=== PATIENT | male | born 1950 | race Caucasian/White ===

== ENCOUNTER 2017-10-01 08:49 | Emergency (ER) | payer MEDICARE, OTHER ==
[2017-10-01] MEDS ORDERED: Famotidine TAB* 20 MG PO ONE (09:04)
[2017-10-01] MEDS ORDERED: Al Hydrox/Mg Hydrox/Simet LIQ* 30 ML UDC PO ONE (09:04)
[2017-10-01] MEDS ORDERED: Lidocaine 2% VISCOUS* 15 ML UDC PO ONE (09:04)
--- NOTE | 2017-10-01 09:36 | RAD ---
HISTORY: Chest pain COMPARISONS: May 28, 2016 VIEWS: 4: Frontal dual-energy and lateral views of the chest. FINDINGS: CARDIOMEDIASTINAL SILHOUETTE: The cardiomediastinal silhouette is normal. JARVIS: The jarvis are normal. PLEURA: The costophrenic angles are sharp. No pleural abnormalities are noted. LUNG PARENCHYMA: The lungs are clear. ABDOMEN: The upper abdomen is clear. There is no subphrenic gas. BONES AND SOFT TISSUES: Degenerative changes are noted along the spine. OTHER: None. IMPRESSION: NO ACTIVE CARDIOPULMONARY DISEASE.
[2017-10-01 09:38] LABS: Hematocrit 44 % (42-52); Hemoglobin 14.9 g/dl (14.0-18.0); Mean Corpuscular HGB Conc 34 g/dl (31-36); Mean Corpuscular Hemoglobin 34 pg (27-31); Mean Corpuscular Volume 100 fL (80-94); Mean Platelet Volume 8 um3 (7.4-10.4); Red Blood Count 4.42 10^6/ul (4.0-5.4); Red Cell Distribution Width 13 % (10.5-15)
[2017-10-01 09:55] LABS: Albumin 4.1 g/dL (3.2-5.2); BUN/Creatinine Ratio 8.3 (8-20); Calcium 9.4 mg/dL (8.6-10.3); EGFR African American 86.8 (>60); EGFR Non-African American 67.5 (>60); Globulin 2.5 g/dL (2-4); Potassium 3.8 mmol/L (3.5-5.0); Total Protein 6.6 g/dL (6.4-8.9)
[2017-10-01 10:16] LABS: T4 5.65 mcg/mL (6.09-12.23)
[2017-10-01 10:19] LABS: TSH (Thyroid Stimulating Horm) 4.48 mcIU/mL (0.34-5.60)
[2017-10-01 13:14] VITALS: BP 135/77
--- NOTE | 2017-10-02 08:24 | ED ---
Arie Rain Angela, scribed for Pk Zafar MD on 10/01/17 at 0902 . HPI Chest Pain - HPI Summary HPI Summary: This pt is a 66 y/o male presenting to [facility] c/o chest pain radiating to his left shoulder/arm since yesterday. Pt reports his symptoms began yesterday afternoon. Today, he states his chest pain has moved lower. He currently rates his pain 2/10 in severity. Pt additionally c/o SOB and indigestion. He denies nausea, vomiting. Pt denies any PMHx of CA, diabetes, HTN. He currently takes Flomax and occasionally low dose aspirin. - History of Current Complaint Chief Complaint: EDChestPainROMI Time Seen by Provider: 10/01/17 08:57 Hx Obtained From: Patient Onset/Duration: Started Days Ago - 1, Still Present Timing: Constant, Lasting Days - 1 Current Severity: Mild Pain Intensity: 2 Pain Scale Used: 0-10 Numeric Chest Pain Location: Lower Sternal Chest Pain Radiates: Yes Chest Pain Radiates To:: Arm - left Associated Signs and Symptoms: Positive: Chest Pain, Shortness of Breath, Other : - indigestion. Negative: Nausea, Vomiting - Allergy/Home Medications Allergies/Adverse Reactions: Allergies Allergy/AdvReac Type Severity Reaction Status Date / Time Amoxicillin Allergy Mild Rash Verified 09/27/15 07:18 Clarithromycin Allergy Mild Rash Verified 09/27/15 07:18 Home Medications: Home Medications Aspirin EC Low Dose* [Ecotrin EC Low Dose 81 MG*] 81 mg PO DAILY 10/01/17 [ History Confirmed 10/01/17] PMH/Surg Hx/FS Hx/Imm Hx Endocrine/Hematology History: Denies: Hx Diabetes Cardiovascular History: Denies: Hx Hypertension - Surgical History Surgery Procedure, Year, and Place: [facility] - Immunization History Date of Tetanus Vaccine: Unk Date of Influenza Vaccine: None Infectious Disease History: No Infectious Disease History: Denies: Traveled Outside the [place] in Last 30 Days - Family History Known Family History: Negative: Cardiac Disease, Hypertension, Diabetes - Social History Alcohol Use: None Substance Use Type: Reports: None Smoking Status (MU): Former Smoker Review of Systems Negative: Fever, Chills Positive: Chest Pain Positive: Shortness Of Breath Gastrointestinal: Other - indigestion Negative: Vomiting, Nausea Genitourinary: Negative Musculoskeletal: Negative Skin: Negative Neurological: Negative All Other Systems Reviewed And Are Negative: Yes Physical Exam - Summary Physical Exam Summary: VITAL SIGNS: Reviewed. GENERAL: Patient is a well-developed and nourished male who is lying comfortable in the stretcher. Patient is not in any acute respiratory distress. HEAD AND FACE: No signs of trauma. No ecchymosis, hematomas or skull depressions. No sinus tenderness. EYES: PERRLA, EOMI x 2, No injected conjunctiva, no nystagmus. EARS: Hearing grossly intact. Ear canals and tympanic membranes are within normal limits. MOUTH: Oropharynx within normal limits. NECK: Supple, trachea is midline, no adenopathy, no JVD, no carotid bruit, no c- spine tenderness, neck with full ROM. CHEST: Symmetric, no tenderness at palpation LUNGS: Clear to auscultation bilaterally. No wheezing or crackles. CVS: Regular rate and rhythm, S1 and S2 present, no murmurs or gallops appreciated. ABDOMEN: Soft, non-tender. No signs of distention. No rebound no guarding, and no masses palpated. Bowel sounds are normal. EXTREMITIES: FROM in all major joints, no edema, no cyanosis or clubbing. NEURO: Alert and oriented x 3. No acute neurological deficits. Speech is normal and follows commands. SKIN: Dry and warm Triage Information Reviewed: Yes Vital Signs On Initial Exam: Initial Vitals Temp Pulse Resp BP Pulse Ox 97.0 F 65 16 158/83 98 10/01/17 08:52 10/01/17 08:52 10/01/17 08:52 10/01/17 08:52 10/01/17 08:52 Vital Signs Reviewed: Yes Diagnostics - Vital Signs Vital Signs Temp Pulse Resp BP Pulse Ox 10/01/17 08:52 97.0 F 65 16 158/83 98 - Laboratory Lab Results: Lab Results 10/01/17 10/01/17 10/01/17 Range/Units 09:15 09:15 09:15 WBC 5.0 (3.5-10.8) 10^3/ul RBC 4.42 (4.0-5.4) 10^6/ul Hgb 14.9 (14.0-18.0) g/dl Hct 44 (42-52) % MCV 100 H (80-94) fL MCH 34 H (27-31) pg MCHC 34 (31-36) g/dl RDW 13 (10.5-15) % Plt Count 202 (150-450) 10^3/ul MPV 8 (7.4-10.4) um3 Neut % (Auto) 55.6 (38-83) % Lymph % (Auto) 20.4 L (25-47) % [place] % (Auto) 20.8 H (1-9) % Eos % (Auto) 2.7 (0-6) % Baso % (Auto) 0.5 (0-2) % Absolute Neuts (auto) 2.8 (1.5-7.7) 10^3/ul Absolute Lymphs (auto) 1.0 (1.0-4.8) 10^3/ul Absolute Monos (auto) 1.0 H (0-0.8) 10^3/ul Absolute Eos (auto) 0.1 (0-0.6) 10^3/ul Absolute Basos (auto) 0 (0-0.2) 10^3/ul Absolute Nucleated RBC 0 10^3/ul Nucleated RBC % 0.1 Sodium 138 (133-145) mmol/L Potassium 3.8 (3.5-5.0) mmol/L Chloride 105 (101-111) mmol/L Carbon Dioxide 27 (22-32) mmol/L Anion Gap 6 (2-11) mmol/L BUN 9 (6-24) mg/dL Creatinine 1.09 (0.67-1.17) mg/dL Est GFR ( Amer) 86.8 (>60) Est GFR (Non-Af Amer) 67.5 (>60) BUN/Creatinine Ratio 8.3 (8-20) Glucose 118 H (70-100) mg/dL Calcium 9.4 (8.6-10.3) mg/dL Total Bilirubin 1.00 (0.2-1.0) mg/dL AST 26 (13-39) U/L ALT 23 (7-52) U/L Alkaline Phosphatase 64 (34-104) U/L Total Creatine Kinase 197 (10-223) U/L CK-MB (CK-2) 3.1 (0.6-6.3) ng/mL Troponin I 0.00 (<0.04) ng/mL B-Natriuretic Peptide 41 ( - 100) pg/mL Total Protein 6.6 (6.4-8.9) g/dL Albumin 4.1 (3.2-5.2) g/dL Globulin 2.5 (2-4) g/dL Albumin/Globulin Ratio 1.6 (1-3) TSH 4.48 (0.34-5.60) mcIU/mL Thyroxine (T4) 5.65 L (6.09-12.23) mcg/mL 10/01/17 Range/Units 12:05 WBC (3.5-10.8) 10^3/ul RBC (4.0-5.4) 10^6/ul Hgb (14.0-18.0) g/dl Hct (42-52) % MCV (80-94) fL MCH (27-31) pg MCHC (31-36) g/dl RDW (10.5-15) % Plt Count (150-450) 10^3/ul MPV (7.4-10.4) um3 Neut % (Auto) (38-83) % Lymph % (Auto) (25-47) % [place] % (Auto) (1-9) % Eos % (Auto) (0-6) % Baso % (Auto) (0-2) % Absolute Neuts (auto) (1.5-7.7) 10^3/ul Absolute Lymphs (auto) (1.0-4.8) 10^3/ul Absolute Monos (auto) (0-0.8) 10^3/ul Absolute Eos (auto) (0-0.6) 10^3/ul Absolute Basos (auto) (0-0.2) 10^3/ul Absolute Nucleated RBC 10^3/ul Nucleated RBC % Sodium (133-145) mmol/L Potassium (3.5-5.0) mmol/L Chloride (101-111) mmol/L Carbon Dioxide (22-32) mmol/L Anion Gap (2-11) mmol/L BUN (6-24) mg/dL Creatinine (0.67-1.17) mg/dL Est GFR ( Amer) (>60) Est GFR (Non-Af Amer) (>60) BUN/Creatinine Ratio (8-20) Glucose (70-100) mg/dL Calcium (8.6-10.3) mg/dL Total Bilirubin (0.2-1.0) mg/dL AST (13-39) U/L ALT (7-52) U/L Alkaline Phosphatase (34-104) U/L Total Creatine Kinase (10-223) U/L CK-MB (CK-2) (0.6-6.3) ng/mL Troponin I 0.00 (<0.04) ng/mL B-Natriuretic Peptide ( - 100) pg/mL Total Protein (6.4-8.9) g/dL Albumin (3.2-5.2) g/dL Globulin (2-4) g/dL Albumin/Globulin Ratio (1-3) TSH (0.34-5.60) mcIU/mL Thyroxine (T4) (6.09-12.23) mcg/mL Result Diagrams: 10/01/17 09:15 10/01/17 09:15 Lab Statement: Any lab studies that have been ordered have been reviewed, and results considered in the medical decision making process. - Radiology Chest XR Xray Interpretation: No Acute Changes - IMPRESSION: No active cardiopulmonary disease. ED physician has reviewed this radiology report and agrees. Radiology Interpretation Completed By: Radiologist - EKG 0906 Cardiac Rate: Bradycardia EKG Rhythm: Sinus Rhythm - at 57 bpm EKG Interpretation: T-wave inversion in leads III. Re-Evaluation - Re-Evaluation First Eval Re-Evaluation Time: 13:05 Comment: I reviewed the XR and lab results with the pt. Chest Pain Course/Dx - Course Assessment/Plan: This pt is a 66 y/o male presenting to [facility] c/o chest pain radiating to his left shoulder/arm since yesterday. Pt reports his symptoms began yesterday afternoon. Today, he states his chest pain has moved lower. He currently rates his pain 2/10 in severity. Pt additionally c/o SOB and indigestion. He denies nausea, vomiting. Pt denies any PMHx of CA, diabetes, HTN. He currently takes Flomax and occasionally low dose aspirin. Test results without any significant abnormalities except for glucose of 118. Troponin was 0.00 and 4 hours later, troponin 2 is also 0.00. Chest XR shows no active cardiopulmonary disease. The pt was given a GI cocktail and Pepcid, and all symptoms resolved. The pt was observed for more than 4 hours and his symptoms did not return. Therefore, he will be discharged home with follow up from his PCP. Pt is hemodynamically stable, alert and oriented x3. - Chest Pain Differential Diagnosis/HQI/PQRI: Acute CA, ACS, Angina, CHF, Chest Wall, GI Disease, Lower Respiratory Infection - Diagnoses Provider Diagnoses: Chest pain Discharge - Discharge Plan Condition: Stable Disposition: HOME Patient Education Materials: Chest Pain (ED) Referrals: Sunita Nicolas ADVERTISING COLUMNIST [Primary Care Provider] - Additional Instructions: Please follow up with your primary care provider. RETURN TO THE ED FOR ANY WORSENING OR NEW SYMPTOMS. The documentation as recorded by the Arie bain Angela accurately reflects the service I personally performed and the decisions made by Andrade lopez Walter, MD.
== END 2017-10-01 13:14 | disposition home or self-care (01) ==
LOC: ED 08:49
DX: R07.9 Chest pain, unspecified (principal); R06.02 Shortness of breath; Z87.891 Personal history of nicotine dependence
CPT/HCPCS: 36415; 71020; 80053; 82550; 82553; 83880; 84436; 84443; 84484; 85025; 93005; 99282; A9270-GY

== ENCOUNTER 2018-03-24 14:58 | Emergency (ER) | payer MEDICARE ==
[2018-03-24] MEDS ORDERED: Acetaminophen TAB* 325 MG PO ONE (15:51)
[2018-03-24 16:10] LABS: Hematocrit 41 % (42-52); Hemoglobin 14.2 g/dl (14.0-18.0); Mean Corpuscular HGB Conc 35 g/dl (31-36); Mean Corpuscular Hemoglobin 35 pg (27-31); Mean Corpuscular Volume 100 fL (80-94); Mean Platelet Volume 7.5 um3 (7.4-10.4); Platelet Count 178 10^3/ul (150-450); Red Blood Count 4.12 10^6/ul (4.0-5.4); Red Cell Distribution Width 13 % (10.5-15); White Blood Count 11.3 10^3/ul (3.5-10.8)
[2018-03-24 16:22] LABS: INR 1.16 (0.77-1.02)
[2018-03-24 16:26] LABS: Urine Appearance Clear; Urine Blood 1+ (Negative); Urine Color Yellow; Urine Ketones 1+ (Negative); Urine Protein 1+(30 mg/dL) (Negative); Urine Specific Gravity 1.015 (1.010-1.030); Urine Urobilinogen Positive (Negative)
--- NOTE | 2018-03-24 16:31 | RAD ---
HISTORY: Fever COMPARISONS: October 01, 2017 VIEWS: 4: Frontal dual-energy and lateral views of the chest. FINDINGS: CARDIOMEDIASTINAL SILHOUETTE: The cardiomediastinal silhouette is normal. JARVIS: The jarvis are normal. PLEURA: The costophrenic angles are sharp. No pleural abnormalities are noted. LUNG PARENCHYMA: There is a diffuse pattern of alveolar and reticulonodular opacification of the right lung field. ABDOMEN: The upper abdomen is clear. There is no subphrenic gas. BONES AND SOFT TISSUES: No bone or soft tissue abnormalities are noted. OTHER: None. IMPRESSION: MIXED INTERSTITIAL AND AIRSPACE DISEASE OF THE RIGHT LUNG. RECOMMEND FOLLOW-UP UNTIL RESOLUTION TO EXCLUDE UNDERLYING PULMONARY PARENCHYMAL PATHOLOGY. IF THE CLINICAL PRESENTATION IS NOT CONSISTENT WITH INFECTION, CONSIDER FURTHER EVALUATION WITH CONTRAST-ENHANCED CT OF THE CHEST .
[2018-03-24 16:32] LABS: EGFR Non-African American 69.5 (>60)
[2018-03-24 16:34] LABS: ABS Basophils 0 10^3/ul (0-0.2); ABS Eosinophils 0 10^3/ul (0-0.6); ABS Lymphocytes 0.9 10^3/ul (1.0-4.8); ABS Monocytes 2.6 10^3/ul (0-0.8); ABS Neutrophils 7.8 10^3/ul (1.5-7.7); ABS Nucleated RBC 0 10^3/ul; Eosinophil % 0.1 % (0-6); Lymphocyte % 7.8 % (25-47); Nucleated Red Blood Cells % 0.1
[2018-03-24] MEDS ORDERED: Levofloxacin TAB* 250 MG PO ONE (17:21)
[2018-03-24 17:34] VITALS: BP 128/73
--- NOTE | 2018-03-24 17:54 | ED ---
Rahat Rain Tiffany, scribed for Lionel Orozco on 03/24/18 at 1551 . Influenza-Like Illness - HPI Summary HPI Summary: 67 y/o M presents to [facility] complains of vomiting since two nights ago, worse since today. Symptoms aggravated and alleviated by nothing. Reports cough with greenish-brown phlegm, chest pain with cough, chills, weakness. Denies abdominal pain, bilateral leg edema, fever. No hx of diabetes, HTN, cardiac disease. - History of Current Complaint Chief Complaint: EDFluSymptoms Time Seen by Provider: 03/24/18 15:31 Hx Obtained From: Patient Onset/Duration: Lasting Days - two nights ago, Still Present, Worse Since - today - Allergy/Home Medications Allergies/Adverse Reactions: Allergies Allergy/AdvReac Type Severity Reaction Status Date / Time amoxicillin Allergy Hives Verified 03/24/18 15:03 clarithromycin Allergy Hives Verified 03/24/18 15:03 PMH/Surg Hx/FS Hx/Imm Hx Previously Healthy: No Endocrine/Hematology History: Denies: Hx Diabetes Cardiovascular History: Denies: Hx Congenital Heart Disease, Hx Congestive Heart Failure, Hx Coronary Artery Disease, Hx Hypertension GI History: Reports: Hx Gastroesophageal Reflux Disease Sensory History: Denies: Hx Deafness EENT History: Denies: Hx Deafness Psychiatric History: Denies: Hx Panic Disorder - Surgical History Surgery Procedure, Year, and Place: [facility] - Immunization History Date of Tetanus Vaccine: Unk Date of Influenza Vaccine: None Infectious Disease History: No Infectious Disease History: Denies: Traveled Outside the [place] in Last 30 Days - Family History Known Family History: Negative: Cardiac Disease, Hypertension, Diabetes - Social History Alcohol Use: Daily Alcohol Amount: "a couple" each day Hx Substance Use: No Substance Use Type: Reports: None Hx Tobacco Use: Yes Smoking Status (MU): Former Smoker Review of Systems Negative: Fever Positive: Cough - with greenish-brown phelgm and chest pain Positive: Vomiting. Negative: Abdominal Pain Negative: Edema All Other Systems Reviewed And Are Negative: Yes Physical Exam - Summary Physical Exam Summary: Appearance: Well appearing, no pain distress Skin: warm, dry, reflects adequate perfusion Head/face: normal Eyes: EOMI, BASILIO ENT: normal Neck: supple, non-tender Respiratory: CTA, breath sounds present Cardiovascular: RRR, pulses symmetrical Abdomen: non-tender, soft Bowel: present Musculoskeletal: normal, strength/ROM intact Neuro: normal, sensory motor intact, A&Ox3 Triage Information Reviewed: Yes Vital Signs On Initial Exam: Initial Vitals Temp Pulse Resp BP Pulse Ox 98.4 F 84 18 142/90 93 03/24/18 15:00 03/24/18 15:00 03/24/18 15:00 03/24/18 15:00 03/24/18 15:00 Vital Signs Reviewed: Yes Diagnostics - Vital Signs Vital Signs Temp Pulse Resp BP Pulse Ox 03/24/18 15:00 98.4 F 84 18 142/90 93 - Laboratory Lab Results: Lab Results 03/24/18 03/24/18 03/24/18 Range/Units 15:58 15:58 15:58 WBC 11.3 H (3.5-10.8) 10^3/ul RBC 4.12 (4.0-5.4) 10^6/ul Hgb 14.2 (14.0-18.0) g/dl Hct 41 L (42-52) % MCV 100 H (80-94) fL MCH 35 H (27-31) pg MCHC 35 (31-36) g/dl RDW 13 (10.5-15) % Plt Count 178 (150-450) 10^3/ul MPV 7.5 (7.4-10.4) um3 Neut % (Auto) 69.0 (38-83) % Lymph % (Auto) 7.8 L (25-47) % [place] % (Auto) 22.8 H (0-7) % Eos % (Auto) 0.1 (0-6) % Baso % (Auto) 0.3 (0-2) % Absolute Neuts (auto) 7.8 H (1.5-7.7) 10^3/ul Absolute Lymphs (auto) 0.9 L (1.0-4.8) 10^3/ul Absolute Monos (auto) 2.6 H (0-0.8) 10^3/ul Absolute Eos (auto) 0 (0-0.6) 10^3/ul Absolute Basos (auto) 0 (0-0.2) 10^3/ul Absolute Nucleated RBC 0 10^3/ul Nucleated RBC % 0.1 INR (Anticoag Therapy) 1.16 H (0.77-1.02) APTT 28.0 (26.0-36.3) seconds Sodium 138 L (139-145) mmol/L Potassium 3.8 (3.5-5.0) mmol/L Chloride 104 (101-111) mmol/L Carbon Dioxide 27 (22-32) mmol/L Anion Gap 7 (2-11) mmol/L BUN 12 (6-24) mg/dL Creatinine 1.06 (0.67-1.17) mg/dL Est GFR ( Amer) 89.4 (>60) Est GFR (Non-Af Amer) 69.5 (>60) BUN/Creatinine Ratio 11.3 (8-20) Glucose 115 H (70-100) mg/dL Lactic Acid (0.5-2.0) mmol/L Calcium 8.7 (8.6-10.3) mg/dL Total Bilirubin 1.40 H (0.2-1.0) mg/dL AST 17 (13-39) U/L ALT 14 (7-52) U/L Alkaline Phosphatase 48 (34-104) U/L Troponin I 0.03 (<0.04) ng/mL B-Natriuretic Peptide ( - 100) pg/mL Total Protein 6.6 (6.4-8.9) g/dL Albumin 3.7 (3.2-5.2) g/dL Globulin 2.9 (2-4) g/dL Albumin/Globulin Ratio 1.3 (1-3) Urine Color Urine Appearance Urine pH (5-9) Ur Specific [place] (1.010-1.030) Urine Protein (Negative) Urine Ketones (Negative) Urine Blood (Negative) Urine Nitrate (Negative) Urine Bilirubin (Negative) Urine Urobilinogen (Negative) Ur Leukocyte Esterase (Negative) Urine WBC (Auto) (Absent) Urine RBC (Auto) (Absent) Ur Squamous Epith Cells (Absent) Urine Bacteria (Absent) Urine Glucose (Negative) 03/24/18 03/24/18 03/24/18 Range/Units 15:58 15:58 16:04 WBC (3.5-10.8) 10^3/ul RBC (4.0-5.4) 10^6/ul Hgb (14.0-18.0) g/dl Hct (42-52) % MCV (80-94) fL MCH (27-31) pg MCHC (31-36) g/dl RDW (10.5-15) % Plt Count (150-450) 10^3/ul MPV (7.4-10.4) um3 Neut % (Auto) (38-83) % Lymph % (Auto) (25-47) % [place] % (Auto) (0-7) % Eos % (Auto) (0-6) % Baso % (Auto) (0-2) % Absolute Neuts (auto) (1.5-7.7) 10^3/ul Absolute Lymphs (auto) (1.0-4.8) 10^3/ul Absolute Monos (auto) (0-0.8) 10^3/ul Absolute Eos (auto) (0-0.6) 10^3/ul Absolute Basos (auto) (0-0.2) 10^3/ul Absolute Nucleated RBC 10^3/ul Nucleated RBC % INR (Anticoag Therapy) (0.77-1.02) APTT (26.0-36.3) seconds Sodium (139-145) mmol/L Potassium (3.5-5.0) mmol/L Chloride (101-111) mmol/L Carbon Dioxide (22-32) mmol/L Anion Gap (2-11) mmol/L BUN (6-24) mg/dL Creatinine (0.67-1.17) mg/dL Est GFR ( Amer) (>60) Est GFR (Non-Af Amer) (>60) BUN/Creatinine Ratio (8-20) Glucose (70-100) mg/dL Lactic Acid 0.9 (0.5-2.0) mmol/L Calcium (8.6-10.3) mg/dL Total Bilirubin (0.2-1.0) mg/dL AST (13-39) U/L ALT (7-52) U/L Alkaline Phosphatase (34-104) U/L Troponin I (<0.04) ng/mL B-Natriuretic Peptide 166 H ( - 100) pg/mL Total Protein (6.4-8.9) g/dL Albumin (3.2-5.2) g/dL Globulin (2-4) g/dL Albumin/Globulin Ratio (1-3) Urine Color Yellow Urine Appearance Clear Urine pH 6.0 (5-9) Ur Specific [place] 1.015 (1.010-1.030) Urine Protein 1+(30 mg/dl) A (Negative) Urine Ketones 1+ A (Negative) Urine Blood 1+ A (Negative) Urine Nitrate Negative (Negative) Urine Bilirubin Negative (Negative) Urine Urobilinogen Positive A (Negative) Ur Leukocyte Esterase Negative (Negative) Urine WBC (Auto) Trace(0-5/hpf) (Absent) Urine RBC (Auto) Trace(0-2/hpf) (Absent) Ur Squamous Epith Cells Present A (Absent) Urine Bacteria Absent (Absent) Urine Glucose Negative (Negative) Result Diagrams: 03/24/18 15:58 03/24/18 15:58 Lab Statement: Any lab studies that have been ordered have been reviewed, and results considered in the medical decision making process. - Radiology CXR Radiology Interpretation Completed By: Radiologist - MIXED INTERSTITIAL AND AIRSPACE DISEASE OF THE RIGHT LUNG. RECOMMEND FOLLOW-UP UNTIL RESOLUTION TO EXCLUDE UNDERLYING PULMONARY PARENCHYMAL PATHOLOGY. IF THE CLINICAL PRESENTATION IS NOT CONSISTENT WITH INFECTION, CONSIDER FURTHER EVALUATION WITH CONTRAST-ENHANCED CT OF THE CHEST. ED physician has reviewed this report. - EKG 15:53 Cardiac Rate: NL - 89 BPM EKG Rhythm: Sinus Rhythm EKG Interpretation: No acute changes Re-Evaluation - Re-Evaluation First Eval Re-Evaluation Time: 17:16 Change: Unchanged Comment: Patient wants to go home, does not want to be admitted. Advised to follow up with PCP in 3 days. Flu Symptom Course/Dx - Course Course Of Treatment: 67 y/o M presents to [facility] complains of vomiting since two nights ago, worse since today. Bloodwork/UA, imaging obtained. Patient does not want to be admitted, so he will be discharged with prescription and follow up from PCP. - Diagnoses Differential Diagnosis/HQI/PQRI: Positive: Bronchitis, Pneumonia, Upper Respiratory Infection Provider Diagnoses: Pneumonia Discharge - Sign-Out/Discharge Documenting (check all that apply): Discharge/Admit/Transfer - Discharge Plan Condition: Fair Disposition: HOME Prescriptions: Ibuprofen TAB* [Motrin TAB* 600 MG] 600 mg PO Q8H PRN #14 tab MDD 3 PRN Reason: Pain Levofloxacin TAB* [Levaquin TAB*] 500 mg PO DAILY #9 tab Patient Education Materials: Pneumonia (ED) Referrals: Sunita Nicolas, ENVIRONMENTAL CONFLICT MANAGER [Primary Care Provider] - 3 Days Additional Instructions: Follow up with your primary care provider in 3 days. Return to the Emergency Department for any new or worsening symptoms. - Billing Disposition and Condition Condition: FAIR Disposition: HOME The documentation as recorded by the Rahat bain Tiffany accurately reflects the service I personally performed and the decisions made by , Lionel Orozco.
== END 2018-03-24 17:33 | disposition home or self-care (01) ==
LOC: ED 14:58
DX: J18.9 Pneumonia, unspecified organism (principal); J84.9 Interstitial pulmonary disease, unspecified; Z87.891 Personal history of nicotine dependence; Z88.3 Allergy status to other anti-infective agents
CPT/HCPCS: 36415; 71046; 80053; 81003; 81015; 83605; 83880; 84484; 85025; 85610; 85730; 87086; 93005; 99282; A9270-GY

== ENCOUNTER 2019-01-12 17:02 | Emergency (ER) | payer MEDICARE ==
[2019-01-12 18:06] LABS: ABS Basophils 0 10^3/ul (0-0.2); ABS Eosinophils 0.1 10^3/ul (0-0.6); ABS Lymphocytes 1.4 10^3/ul (1.0-4.8); ABS Monocytes 1.3 10^3/ul (0-0.8); ABS Neutrophils 3.1 10^3/ul (1.5-7.7); ABS Nucleated RBC 0 10^3/ul; Eosinophil % 2.4 %; Hematocrit 43 % (36-46); Hemoglobin 14.7 g/dL (14.0-18.0); Lymphocyte % 22.7 %; Mean Corpuscular HGB Conc 35 g/dL (31-36); Mean Corpuscular Hemoglobin 34 pg (27-31); Mean Corpuscular Volume 99 fL (80-94); Mean Platelet Volume 7.3 fL (7.4-10.4); Nucleated Red Blood Cells % 0; Platelet Count 231 10^3/uL (150-450); Red Cell Distribution Width 13 % (10.5-15)
--- NOTE | 2019-01-12 18:19 | ED ---
HPI Chest Pain - HPI Summary HPI Summary: A 68 y/o M sent by Dr. Miramontes, cardio, for workup presents to ED with c/o intermittent episodes of CP onset for a few weeks. The pain is described as discomfort and he feels it's related to acid reflux. Associated sx: LUE soreness. Denies abd pain, pedal edema, n/d, fever, urinary sx. He is feeling better at bedside, but the discomfort is still present. He has not taken any medication for it. He had a stress test 3 years ago. Former smoker, 10 years ago. - History of Current Complaint Chief Complaint: EDChestPainROMI Time Seen by Provider: 01/12/19 17:51 Hx Obtained From: Patient Onset/Duration: Started Weeks Ago, Still Present - mildly Timing: Intermittent Initial Severity: Mild Current Severity: Mild Pain Intensity: 1 Pain Scale Used: 0-10 Numeric Character: Other: - discomfort Associated Signs and Symptoms: Positive: Other: - pos: LUE soreness. neg: diarrhea, urinary sx.. Negative: Fever, Nausea, Abdominal Pain, Edema - Allergy/Home Medications Allergies/Adverse Reactions: Allergies Allergy/AdvReac Type Severity Reaction Status Date / Time amoxicillin Allergy Hives Verified 03/24/18 15:03 clarithromycin Allergy Hives Verified 03/24/18 15:03 Home Medications: Home Medications Vitamin C TAB* 500 mg PO DAILY 01/12/19 [History Confirmed 01/12/19] PMH/Surg Hx/FS Hx/Imm Hx Previously Healthy: No Endocrine/Hematology History: Denies: Hx Diabetes Cardiovascular History: Denies: Hx Congenital Heart Disease, Hx Congestive Heart Failure, Hx Coronary Artery Disease, Hx Hypertension GI History: Reports: Hx Gastroesophageal Reflux Disease Sensory History: Denies: Hx Deafness Psychiatric History: Denies: Hx Panic Disorder - Surgical History Surgery Procedure, Year, and Place: [facility] - Immunization History Date of Tetanus Vaccine: Unk Date of Influenza Vaccine: no Immunizations Up to Date: Yes Infectious Disease History: No Infectious Disease History: Denies: Traveled Outside the [place] in Last 30 Days - Family History Known Family History: Negative: Cardiac Disease, Hypertension, Diabetes - Social History Occupation: Employed Part-time Lives: With Family Alcohol Use: Daily Alcohol Amount: "a couple" each day Hx Substance Use: No Substance Use Type: Reports: None Hx Tobacco Use: Yes Smoking Status (MU): Former Smoker Review of Systems Negative: Fever Positive: Chest Pain Negative: Abdominal Pain, Diarrhea, Nausea Negative: dysuria, hematuria Musculoskeletal: Other - pos: LUE soreness Negative: Edema All Other Systems Reviewed And Are Negative: Yes Physical Exam - Summary Physical Exam Summary: Constitutional: Well-developed, Well-nourished, Alert. (-) Distressed Skin: Warm, Dry HENT: Normocephalic; Atraumatic Eyes: Conjunctiva normal Neck: Musculoskeletal ROM normal neck. (-) JVD, (-) Stridor, (-) Tracheal deviation Cardio: Rhythm regular, rate normal, Heart sounds normal; Intact distal pulses; The pedal pulses are 2+ and symmetric. Radial pulses are 2+ and symmetric. (-) Murmur Pulmonary/Chest wall: Effort normal. (-) Respiratory distress, (-) Wheezes, (-) Rales Abd: Soft, (-) tenderness, (-) Distension, (-) Guarding, (-) Rebound Musculoskeletal: (-) Edema Lymph: (-) Cervical adenopathy Neuro: Alert, Oriented x3 Psych: Mood and affect Normal Triage Information Reviewed: Yes Vital Signs On Initial Exam: Initial Vitals Temp Pulse Resp BP Pulse Ox 97.8 F 64 18 176/81 96 01/12/19 17:09 01/12/19 17:09 01/12/19 17:09 01/12/19 17:09 01/12/19 17:09 Vital Signs Reviewed: Yes Diagnostics - Vital Signs Vital Signs Temp Pulse Resp BP Pulse Ox 01/12/19 17:09 97.8 F 64 18 176/81 96 - Laboratory Lab Results: Lab Results 01/12/19 Range/Units 17:59 WBC 6.0 (3.5-10.8) 10^3/uL RBC 4.30 (4.18-5.48) 10^6 /uL Hgb 14.7 (14.0-18.0) g/dL Hct 43 (36-46) % MCV 99 H (80-94) fL MCH 34 H (27-31) pg MCHC 35 (31-36) g/dL RDW 13 (10.5-15) % Plt Count 231 (150-450) 10^3/uL MPV 7.3 L (7.4-10.4) fL Neut % (Auto) 52.1 % Lymph % (Auto) 22.7 % [place] % (Auto) 22.0 % Eos % (Auto) 2.4 % Baso % (Auto) 0.8 % Absolute Neuts (auto) 3.1 (1.5-7.7) 10^3/ul Absolute Lymphs (auto) 1.4 (1.0-4.8) 10^3/ul Absolute Monos (auto) 1.3 H (0-0.8) 10^3/ul Absolute Eos (auto) 0.1 (0-0.6) 10^3/ul Absolute Basos (auto) 0 (0-0.2) 10^3/ul Absolute Nucleated RBC 0 10^3/ul Nucleated RBC % 0 Result Diagrams: 01/12/19 17:59 01/12/19 17:59 Lab Statement: Any lab studies that have been ordered have been reviewed, and results considered in the medical decision making process. - Radiology CXR Radiology Interpretation Completed By: ED Physician Summary of Radiographic Findings: Small R-side pleural effusion, otherwise no acute disease. - EKG 1719 Cardiac Rate: Bradycardia - 53 bpm EKG Rhythm: Sinus Bradycardia Summary of EKG Findings: Sinus angie at 53 bpm, normal [place], normal QRS, normal QTc, LAD, normal ST, normal T-waves, non-specific EKG. 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 Chest Pain Course/Dx - Course Course Of Treatment: Pt is a 68 y/o M sent by Dr. Miramontes, cardio, for workup presents to ED with c/o intermittent episodes of CP onset for a few weeks. The pain is described as discomfort and he feels it's related to acid reflux. Associated sx: LUE soreness. He had a stress test 3 years ago. Former smoker, 10 years ago. CXR shows small R-side pleural effusion, otherwise no acute disease. EKG shows sinus angie at 53 bpm, LAD, otherwise non-specific EKG. Lab work is unremarkable except MCV: 99, MCH: 34, MPV: 7.3. Glucose is 101. Two troponins are unchanged at 0.00. Discharge - Sign-Out/Discharge Documenting (check all that apply): Patient Departure - DC Patient Received Moderate/Deep Sedation with Procedure: No - Discharge Plan Referrals: Sunita Nicolas, STUDY HALL SUPERVISOR [Primary Care Provider] - - Attestation Statements Document Initiated by Scribe: Yes Documenting Scribe: Celso Medeiros Provider For Whom Scribe is Documenting (Include Credential): Dr. Teresa Hinton MD Scribe Attestation: Koffi, Celso Medeiros, scribed for Dr. Teresa Hinton MD on at 2208.
[2019-01-12 18:32] LABS: Albumin 4.2 g/dL (3.2-5.2); Albumin/Globulin Ratio 1.8 (1-3); BUN/Creatinine Ratio 9.9 (8-20); Calcium 9.2 mg/dL (8.6-10.3); EGFR African American 79.5 (>60); EGFR Non-African American 65.7 (>60); Globulin 2.3 g/dL (2-4); Potassium 4.4 mmol/L (3.5-5.0); Total Bilirubin 0.9 mg/dL (0.2-1.0); Total Protein 6.5 g/dL (6.4-8.9)
[2019-01-12 22:42] VITALS: BP 142/98
== END 2019-01-12 22:41 | disposition home or self-care (01) ==
LOC: ED 17:02
DX: R07.89 Other chest pain (principal); R00.1 Bradycardia, unspecified; Z88.1 Allergy status to other antibiotic agents; Z88.0 Allergy status to penicillin; Z87.891 Personal history of nicotine dependence
CPT/HCPCS: 36415; 71045; 80053; 83605; 84484; 85025; 93005; 99283

== ENCOUNTER 2019-03-30 13:51 | Emergency (ER) | payer MEDICARE ==
[2019-03-30] MEDS ORDERED: NS 0.9% 1000 ML** 1,000 ML IV ONE (14:53)
[2019-03-30] MEDS ORDERED: Ondansetron INJ* 2 MG/ML VIAL IV ONE (14:55)
--- NOTE | 2019-03-30 14:57 | ED ---
Respiratory - HPI Summary HPI Summary: Patient is a 68-year-old male who presents emergency department for productive cough and sinus congestion times several days. Patient notes that he had some upper abdominal pain a few days ago and had a couple episodes of vomiting which has since resolved. Patient denies past medical history other than having pneumonia last year. Patient states he is a history of smoking. Patient also notes daily alcohol use. Patient notes he was drinking Friday night when he started vomiting several days ago. He denies chest pain or palpitations. Patient notes productive cough, shortness of breath and nasal congestion. Symptoms are moderate in severity. No current modifying factors. Past medical history of BPH and acid reflux. - History of Current Complaint Chief Complaint: EDGeneral Stated Complaint: COUGHING/CHEST PAIN/ACHY PER PT Time Seen by Provider: 03/30/19 14:16 Hx Obtained From: Patient Pain Intensity: 8 - Allergy/Home Medications Allergies/Adverse Reactions: Allergies Allergy/AdvReac Type Severity Reaction Status Date / Time amoxicillin Allergy Hives Verified 03/30/19 13:56 clarithromycin Allergy Hives Verified 03/30/19 13:56 PMH/Surg Hx/FS Hx/Imm Hx Previously Healthy: Yes Endocrine/Hematology History: Denies: Hx Diabetes Cardiovascular History: Denies: Hx Congenital Heart Disease, Hx Congestive Heart Failure, Hx Coronary Artery Disease, Hx Hypertension GI History: Reports: Hx Gastroesophageal Reflux Disease Sensory History: Denies: Hx Deafness Psychiatric History: Denies: Hx Panic Disorder - Surgical History Surgery Procedure, Year, and Place: [facility] - Immunization History Date of Tetanus Vaccine: Unk Date of Influenza Vaccine: no Infectious Disease History: No Infectious Disease History: Denies: Traveled Outside the [place] in Last 30 Days - Family History Known Family History: Positive: Non-Contributory Negative: Cardiac Disease, Hypertension, Diabetes - Social History Occupation: Employed Part-time Lives: With Family Alcohol Use: Daily Alcohol Amount: "a couple" each day Hx Substance Use: No Substance Use Type: Reports: None Hx Tobacco Use: Yes Smoking Status (MU): Former Smoker Review of Systems Positive: Chills. Negative: Fever Eyes: Negative Positive: Nasal Discharge Cardiovascular: Negative Positive: Shortness Of Breath, Cough Positive: Vomiting, Nausea. Negative: Abdominal Pain Genitourinary: Negative Musculoskeletal: Negative Skin: Negative Neurological: Negative All Other Systems Reviewed And Are Negative: Yes Physical Exam Triage Information Reviewed: Yes Vital Signs On Initial Exam: Initial Vitals Temp Pulse Resp BP Pulse Ox 99 F 92 16 137/93 94 03/30/19 13:54 03/30/19 13:54 03/30/19 13:54 03/30/19 13:54 03/30/19 13:54 Vital Signs Reviewed: Yes Appearance: Positive: Well-Appearing - Pt. lying in bed in NAD. Skin: Positive: Warm, Dry Head/Face: Positive: Normal Head/Face Inspection Eyes: Positive: Normal, EOMI, BASILIO ENT: Positive: Pharynx normal, TMs normal, Sinus tenderness - and congestion Neck: Positive: Supple Respiratory/Lung Sounds: Positive: Other - Diminished breath sounds throughout. Cardiovascular: Positive: Normal, RRR Abdomen Description: Positive: Other: - Distended. Abd. is soft and nontender throughout. Musculoskeletal: Positive: Normal, Strength/ROM Intact Neurological: Positive: Normal, CN Intact II-III Psychiatric: Positive: Affect/Mood Appropriate Diagnostics - Vital Signs Vital Signs Temp Pulse Resp BP Pulse Ox 03/30/19 13:54 99 F 92 16 137/93 94 - Laboratory Result Diagrams: 03/30/19 15:17 03/30/19 15:17 Lab Statement: Any lab studies that have been ordered have been reviewed, and results considered in the medical decision making process. Disposition - Course Course Of Treatment: Pt. presenting for productive cough and sinus congestion. Afebrile initially with stable VS. O2 saturation is 94% on RA which is normal. ECG done at 1541 shows a sinus rhythm of 74 bpm, left axis deviation, no STEMI, similar to prior tracing. CBC shows normal WBC. Mild elevation in bili. CRP elevated 150's. IMPRESSION: PATCHY RIGHT BASILAR CONSOLIDATION. RECOMMEND FOLLOW-UP UNTIL RESOLUTION TO EXCLUDE. UNDERLYING PULMONARY PARENCHYMAL PATHOLOGY. ON re-exam pt. resting comfortably. Results discussed. WIll treat with levaquin. Strongly advised pt. to cut back on drinking and f.u with PCP in 2-3 days for close f.u. Pt. will return to the ER if sxs change or worsen. Pt. understands and agrees with plan. Upon dc temp. increased to 100.3. - Differential Dx - Cardiopulmonary Differential Diagnoses - Cardiopulmonary: Aspiration, Asthma, Influenza, Lower Resp Infection, Sinusitis - Diagnoses Provider Diagnoses: Pneumonia Discharge - Sign-Out/Discharge Documenting (check all that apply): Patient Departure Patient Received Moderate/Deep Sedation with Procedure: No - Discharge Plan Condition: Good Disposition: HOME Prescriptions: Albuterol HFA INHALER* [Ventolin HFA Inhaler*] 2 puff INH Q4H PRN #1 mdi PRN Reason: Wheezing Levofloxacin TAB* [Levaquin TAB*] 750 mg PO DAILY #5 tab Patient Education Materials: Bacterial Pneumonia (ED) Referrals: Sunita Nicolas BAKED GOODS STOCK CLERK [Primary Care Provider] - Additional Instructions: Call your PCP tomorrow to schedule an appointment within 2-3 days Take medication as directed Avoid drinking Increase fluids and rest Return to ER if symptoms change or worsen - Billing Disposition and Condition Condition: GOOD Disposition: Home
[2019-03-30 15:25] LABS: Hematocrit 43 % (42-52); Hemoglobin 14.8 g/dL (14.0-18.0); Mean Corpuscular HGB Conc 34 g/dL (31-36); Mean Corpuscular Hemoglobin 34 pg (27-31); Mean Corpuscular Volume 100 fL (80-94); Mean Platelet Volume 7.3 fL (7.4-10.4); Platelet Count 210 10^3/uL (150-450); Red Blood Count 4.32 10^6 /uL (4.18-5.48); Red Cell Distribution Width 13 % (10.5-15); White Blood Count 10.3 10^3/uL (3.5-10.8)
[2019-03-30 15:30] LABS: INR 1.2 (0.82-1.09)
[2019-03-30 15:49] LABS: ALT 17 U/L (7-52); AST 17 U/L (13-39); Albumin/Globulin Ratio 1.5 (1-3); Alkaline Phosphatase 54 U/L (34-104); Anion Gap 7 mmol/L (2-11); BUN/Creatinine Ratio 11.2 (8-20); Blood Urea Nitrogen 12 mg/dL (6-24); C Reactive Protein 191.56 mg/L (<8.01); CO2 Carbon Dioxide 26 mmol/L (22-32); Calcium 9.1 mg/dL (8.6-10.3); Chloride 105 mmol/L (101-111); EGFR African American 82.9 (>60); EGFR Non-African American 68.5 (>60); Globulin 2.7 g/dL (2-4); Glucose 108 mg/dL (70-100); Potassium 3.6 mmol/L (3.5-5.0); Sodium 138 mmol/L (135-145); Total Protein 6.7 g/dL (6.4-8.9)
[2019-03-30 15:54] LABS: ABS Monocytes 2.2 10^3/ul (0-0.8); ABS Neutrophils 7.1 10^3/ul (1.5-7.7); Eosinophil % 0.4 %; Lymphocyte % 9.7 %
[2019-03-30 16:53] VITALS: BP 127/73
== END 2019-03-30 16:52 | disposition home or self-care (01) ==
LOC: ED 13:51
DX: J18.9 Pneumonia, unspecified organism (principal); Z87.891 Personal history of nicotine dependence; K21.9 Gastro-esophageal reflux disease without esophagitis; Z88.0 Allergy status to penicillin; R06.02 Shortness of breath
CPT/HCPCS: 36415; 71046; 80053; 83605; 83690; 83880; 84484; 85025; 85610; 86140; 93005; 96361; 96374; 99282; J2405

== ENCOUNTER 2020-09-08 10:12 | Observation (INO) ==
[~2020-09-08 10:12] MED LIST: Buffered Lidocaine 1% SYRIN 1 ml INTRADERM ONE; Lactated Ringers 1000 ml BAG 1,000 ML IV SCH; Sodium Citrate/Citric Acid LIQ 15 ML UDC PO ONE
[2020-09-08] MEDS ORDERED: Bupivacaine 0.5% 50 ML MDV VIAL ONE (10:46)
[2020-09-08] MEDS ORDERED: Sodium Citrate/Citric Acid LIQ 15 ML UDC ONE (10:47)
[2020-09-08] MEDS ORDERED: ceFAZolin 2 GM PREMIX 2 GM/50 ML BAG ONE (10:47)
[2020-09-08] MEDS ORDERED: Famotidine IV 10 MG/ML 2 ml VIAL (20 mg) IV SLOW PU ONE (11:28)
[2020-09-08] MEDS ORDERED: Dexamethasone IV 4 MG/ML VIAL 1 ml VIAL ONE (11:29)
[2020-09-08] MEDS ORDERED: Famotidine IV 10 MG/ML 2 ml VIAL (20 mg) ONE (11:33)
[2020-09-08] MEDS ORDERED: Lidocaine 1% MPF 5 ML VIAL ONE (11:39)
[2020-09-08] MEDS ORDERED: ROPIVACAINE 5 MG/ML 30 ML BTL (0.5%) ONE (11:39)
[2020-09-08] MEDS ORDERED: Midazolam 5 mg/5 ml VIAL 1 mg/ml 5 ml VIAL (5 mg) ONE (11:45)
[2020-09-08] MEDS ORDERED: fentaNYL 100 mcg/2 ml 50 MCG/ML VIAL IV PRN (12:42)
[2020-09-08] MEDS ORDERED: Naloxone 0.4 mg VIAL 0.4 mg/ml 1 ml VIAL IV PRN (12:42)
[2020-09-08] MEDS ORDERED: Ondansetron 4 mg VIAL 2 MG/ML 2 ml VIAL IV PRN ×2 (12:42→13:36)
[2020-09-08] MEDS ORDERED: HYDROmorphone 1 MG/1 ML SYRINGE IV PRN (12:42)
[2020-09-08] MEDS ORDERED: Morphine 2 MG/ML SYRINGE IV PRN (13:36)
[2020-09-08] MEDS ORDERED: Lactulose 30 ml UDC PO PRN (13:36)
[2020-09-08] MEDS ORDERED: Magnesium Hydroxide LIQ 30 ML UDC PO PRN (13:36)
[2020-09-08] MEDS ORDERED: diPHENhydraMINE IV 50 MG/ML 1 ml VIAL (BENADRYL) IV PRN (13:36)
[2020-09-08] MEDS ORDERED: diPHENhydraMINE 25 mg TAB PO PRN (13:36)
[2020-09-08] MEDS ORDERED: Ondansetron ODT 4 mg TAB 4 MG TAB PO PRN (13:36)
[2020-09-08] MEDS ORDERED: EPHEDrine (Pressors) 50 MG/ML VIAL ONE (14:52)
[2020-09-08] MEDS ORDERED: Glycopyrrolate IV 0.2 MG/ML 1 ML VIAL ONE (14:57)
[2020-09-08] MEDS: Lactated Ringers 1000 ml BAG 1,000 ML IV SCH (16:29)
[2020-09-08] MEDS: Clindamycin 600 MG/D5W BAG 600 MG/50 ML BAG IV SCH (22:20)
[2020-09-08] MEDS: Magnesium Hydroxide LIQ 30 ML UDC PO SCH (22:22)
[2020-09-09] MEDS ORDERED: Polyethylene Glycol 3350 17 GM PACKET PO PRN (00:01)
[2020-09-09] MEDS: Lactated Ringers 1000 ml BAG 1,000 ML IV SCH (03:22)
[2020-09-09] MEDS: Clindamycin 600 MG/D5W BAG 600 MG/50 ML BAG IV SCH ×2 (05:13→12:37)
[2020-09-09 06:20] LABS: Hematocrit 43 % (42-52); Hemoglobin 14.5 g/dL (14.0-18.0); Mean Platelet Volume 7.1 fL (7.4-10.4); Platelet Count 287 10^3/uL (150-450)
[2020-09-09 06:35] LABS: BUN/Creatinine Ratio 12.1 (8-20); EGFR African American 75.3 (>60); EGFR Non-African American 62.2 (>60); Potassium 4.3 mmol/L (3.5-5.0)
[2020-09-09] MEDS: Magnesium Hydroxide LIQ 30 ML UDC PO SCH (08:31)
[2020-09-09] MEDS ORDERED: Vitamin THERAPEUTIC TAB PO SCH (09:00)
[2020-09-09 11:09] VITALS: BP 147/76
[2020-09-12] MEDS ORDERED: Scopolamine PATCH Remove NOTE PATCH OFF ONE (15:00)
== END 2020-09-09 15:50 | disposition home or self-care (01) ==
LOC: SSU 10:12 → OR 10:12
PROVIDERS: ADMIT Orthopaedic Surgery Adult Reconstructive Orthopaedic Surgery; ATTEND Orthopaedic Surgery Adult Reconstructive Orthopaedic Surgery

== ENCOUNTER 2020-09-10 15:00 | Inpatient (IN) ==
[2020-09-10] MEDS ORDERED: NS 0.9% 1000 ml BAG 1,000 ML IV ONE (16:05)
[2020-09-10] MEDS ORDERED: Iohexol 350 (CONTRAST) 500 ML MDV IV ONE (16:34)
[2020-09-10 16:46] LABS: Hematocrit 38 % (42-52); Hemoglobin 13.2 g/dL (14.0-18.0); Mean Corpuscular HGB Conc 35 g/dL (31-36); Mean Corpuscular Hemoglobin 34 pg (27-31); Mean Corpuscular Volume 98 fL (80-94); Mean Platelet Volume 7.7 fL (7.4-10.4); Platelet Count 216 10^3/uL (150-450); Red Blood Count 3.91 10^6 /uL (4.18-5.48); Red Cell Distribution Width 13 % (10-15); White Blood Count 11.5 10^3/uL (3.5-10.8)
[2020-09-10 16:53] LABS: INR 1.5 (0.82-1.09)
[2020-09-10 16:54] LABS: Activated Partial Thrombo Time 30.3 seconds (26.0-38.0)
[2020-09-10 17:06] LABS: ALT 15 U/L (7-52); AST 16 U/L (13-39); Albumin 3.8 g/dL (3.2-5.2); Albumin/Globulin Ratio 1.3 (1-3); Alkaline Phosphatase 47 U/L (34-104); Anion Gap 7 mmol/L (2-11); BUN/Creatinine Ratio 12.4 (8-20); Blood Urea Nitrogen 18 mg/dL (6-24); CO2 Carbon Dioxide 27 mmol/L (22-32); Calcium 8.6 mg/dL (8.6-10.3); Chloride 101 mmol/L (101-111); EGFR African American 58.2 (>60); EGFR Non-African American 48.1 (>60); Globulin 2.9 g/dL (2-4); Glucose 130 mg/dL (70-100); Potassium 3.8 mmol/L (3.5-5.0); Sodium 135 mmol/L (135-145); Total Protein 6.7 g/dL (6.4-8.9)
[2020-09-10 17:14] LABS: Troponin I 0.34 ng/mL (<0.03)
[2020-09-10 17:16] LABS: ABS Lymphocytes 0.8 10^3/ul (1.0-4.8); ABS Neutrophils 6.7 10^3/ul (1.5-7.7); Lymphocyte % 7.3 %
[2020-09-10 17:58] LABS: C Reactive Protein 284.56 mg/L (<8.01)
[2020-09-10 18:43] LABS: Urine Appearance Clear; Urine Bilirubin Negative (Negative); Urine Blood Negative (Negative); Urine Color Yellow; Urine Glucose Negative (Negative); Urine Ketones Trace (Negative); Urine Nitrite Negative (Negative); Urine Protein 1+(30 mg/dL) (Negative); Urine Specific Gravity 1.025 (1.010-1.030); Urine Urobilinogen Negative (Negative)
[2020-09-10 18:49] LABS: Urine Bacteria Absent (Absent); Urine Red Blood Cell Trace(0-2/hpf) (Absent); Urine White Blood Cell Trace(0-5/hpf) (Absent)
[2020-09-10 18:58] LABS: Influenza A Molecular Negative (Negative); Influenza B Molecular Negative (Negative)
[2020-09-10] MEDS ORDERED: oxyCODONE/Acetamin 5/325 mg TAB PO SCH (19:00)
[2020-09-10] MEDS ORDERED: Ondansetron 4 mg VIAL 2 MG/ML 2 ml VIAL IV PRN (19:13)
[2020-09-10] MEDS ORDERED: cefTRIAXone 1 gm/50 mL NS BAG 1 GM/50 ML BAG IV ONE (19:38)
[2020-09-10 20:23] LABS: Troponin I 0.26 ng/mL (<0.03)
[2020-09-10] MEDS ORDERED: cefTRIAXone 1 gm/50 mL NS BAG 1 GM/50 ML BAG IVPB SCH (21:00)
[2020-09-10 22:46] LABS: Troponin I 0.24 ng/mL (<0.03)
[2020-09-10] MEDS: Enoxaparin 100 MG/ML SYR SUBCUT SCH (23:11)
[2020-09-10] MEDS: oxyCODONE/Acetamin 5/325 mg TAB PO PRN (23:11)
[2020-09-11 06:09] LABS: Hematocrit 35 % (42-52); Hemoglobin 11.8 g/dL (14.0-18.0); Mean Corpuscular HGB Conc 34 g/dL (31-36); Mean Corpuscular Hemoglobin 34 pg (27-31); Mean Corpuscular Volume 99 fL (80-94); Mean Platelet Volume 7.8 fL (7.4-10.4); Platelet Count 187 10^3/uL (150-450); Red Blood Count 3.49 10^6 /uL (4.18-5.48); Red Cell Distribution Width 13 % (10-15); White Blood Count 11.1 10^3/uL (3.5-10.8)
[2020-09-11 06:17] LABS: ABS Eosinophils 0.1 10^3/ul (0-0.6); ABS Lymphocytes 1.2 10^3/ul (1.0-4.8); ABS Monocytes 3.9 10^3/ul (0-0.8); ABS Neutrophils 5.9 10^3/ul (1.5-7.7); Eosinophil % 0.8 %; Lymphocyte % 10.5 %
[2020-09-11 06:26] LABS: BUN/Creatinine Ratio 13.4 (8-20); Calcium 8.2 mg/dL (8.6-10.3); EGFR African American 78.4 (>60); EGFR Non-African American 64.8 (>60); Potassium 3.7 mmol/L (3.5-5.0)
[2020-09-11] MEDS: Enoxaparin 100 MG/ML SYR SUBCUT SCH ×2 (08:50→21:54)
[2020-09-11] MEDS: oxyCODONE/Acetamin 5/325 mg TAB PO PRN (15:00)
[2020-09-12 06:58] LABS: Hematocrit 33 % (42-52); Hemoglobin 11.4 g/dL (14.0-18.0); Mean Corpuscular HGB Conc 35 g/dL (31-36); Mean Corpuscular Hemoglobin 34 pg (27-31); Mean Corpuscular Volume 98 fL (80-94); Mean Platelet Volume 7.9 fL (7.4-10.4); Platelet Count 208 10^3/uL (150-450); Red Blood Count 3.35 10^6 /uL (4.18-5.48); Red Cell Distribution Width 13 % (10-15); White Blood Count 9.8 10^3/uL (3.5-10.8)
[2020-09-12 07:21] LABS: BUN/Creatinine Ratio 14.7 (8-20); C Reactive Protein 331.41 mg/L (<8.01); Calcium 8.2 mg/dL (8.6-10.3); EGFR African American 94.8 (>60); EGFR Non-African American 78.4 (>60); Potassium 3.6 mmol/L (3.5-5.0)
[2020-09-12 08:08] LABS: ABS Monocytes 3.1 10^3/ul (0-0.8); ABS Neutrophils 5.6 10^3/ul (1.5-7.7); Eosinophil % 0.5 %; Lymphocyte % 9.9 %
[2020-09-12] MEDS: Enoxaparin 100 MG/ML SYR SUBCUT SCH (08:14)
[2020-09-12] MEDS: oxyCODONE/Acetamin 5/325 mg TAB PO PRN ×3 (11:55→19:10)
[2020-09-12] MEDS ORDERED: oxyCODONE/Acetamin 5/325 mg TAB PO ONE (15:00)
[2020-09-13] MEDS: oxyCODONE/Acetamin 5/325 mg TAB PO PRN ×2 (06:30→19:59)
[2020-09-13 07:14] LABS: C Reactive Protein 322.21 mg/L (<8.01); Calcium 8.4 mg/dL (8.6-10.3); EGFR African American 82.7 (>60); EGFR Non-African American 68.3 (>60); Potassium 3.4 mmol/L (3.5-5.0)
[2020-09-13] MEDS ORDERED: Potassium Chlor 20 meq TAB.ER PO ONE (08:26)
[2020-09-14 08:50] LABS: Hematocrit 30 % (42-52); Hemoglobin 10.4 g/dL (14.0-18.0); Mean Corpuscular HGB Conc 34 g/dL (31-36); Mean Corpuscular Hemoglobin 34 pg (27-31); Mean Corpuscular Volume 99 fL (80-94); Mean Platelet Volume 7.6 fL (7.4-10.4); Platelet Count 223 10^3/uL (150-450); Red Blood Count 3.09 10^6 /uL (4.18-5.48); Red Cell Distribution Width 13 % (10-15); White Blood Count 8.6 10^3/uL (3.5-10.8)
[2020-09-14 09:46] LABS: ABS Eosinophils 0.1 10^3/ul (0-0.6); ABS Lymphocytes 0.8 10^3/ul (1.0-4.8); ABS Monocytes 2.7 10^3/ul (0-0.8); ABS Neutrophils 4.9 10^3/ul (1.5-7.7); Eosinophil % 0.9 %; Lymphocyte % 9.7 %
[2020-09-14 11:15] VITALS: BP 131/66
== END 2020-09-14 12:55 | disposition home or self-care (01) | DRG 559 ==
LOC: MED 15:00 → ED 15:00 → OBSVTOIN 18:48 → MED 20:21 → SSU 09-12 11:34
PROVIDERS: ADMIT Internal Medicine; ATTEND Internal Medicine

== ENCOUNTER 2024-11-14 23:03 | Inpatient (IN) ==
[2024-11-14 23:26] LABS: Hematocrit 42.5 % (38-53); Hemoglobin 14.8 g/dL (13.2-16.3); Mean Corpuscular Hgb Conc 34.9 g/dL (31-36); Mean Platelet Volume 7.4 fL (7.5-11.2); Platelet Count 239 10^3/uL (150-450); Red Blood Count 4.25 10^6/uL (4.06-5.63); Red Cell Distribution Width 12.6 % (12-17); White Blood Count 8.9 10^3/uL (3.6-10.2)
[2024-11-14 23:44] LABS: INR 1.11 (0.85-1.14)
[2024-11-14 23:58] LABS: Albumin/Globulin Ratio 1.7 (1-3); Calcium 8.8 mg/dL (8.6-10.3); Creatinine, Serum 1.15 mg/dL (0.67-1.17); Globulin 2.4 g/dL (2-4); Potassium 3.9 mmol/L (3.5-5.0); Total Protein 6.4 g/dL (6.4-8.9); eGFR CKD-EPI 66.8 (>60)
[2024-11-15] MEDS: Morphine 4 MG/ML VIAL (1 ml) IV ONE ×2 (00:12→00:35)
[2024-11-15] MEDS: Lactated Ringers 1000 ml BAG 1,000 ML IV ONE (00:12)
[2024-11-15] MEDS: Ondansetron 4 mg VIAL 2 MG/ML 2 ml VIAL IV ONE (00:12)
[2024-11-15 00:52] LABS: High Sensitivity Troponin 1 Hr 5 pg/mL (<20)
[2024-11-15 01:16] LABS: ABS Eosinophils 0.1 10^3/uL (0.0-0.5); ABS Lymphocytes 1.2 10^3/uL (1.0-4.8); ABS Monocytes 2.1 10^3/uL (0.0-1.1); ABS Neutrophils 5.6 10^3/uL (1.5-7.6); ABS Nucleated RBC 0.01 10^3/ul; Eosinophil % 0.8 %; Lymphocyte % 12.9 %; Nucleated Red Blood Cells % 0.1 %/100WBC (0.0-0.8)
[2024-11-15] MEDS: fentaNYL 100 mcg/2 ml 50 MCG/ML VIAL IV SLOW PU ONE ×3 (02:02→07:40)
[2024-11-15] MEDS: Iohexol 350 (CONTRAST) 500 ML MDV IV ONE (02:03)
[2024-11-15 06:11] LABS: Hematocrit 42.8 % (38-53); Hemoglobin 14.7 g/dL (13.2-16.3); Mean Corpuscular Hemoglobin 34.2 pg (27-33); Mean Corpuscular Hgb Conc 34.3 g/dL (31-36); Mean Corpuscular Volume 99.7 fL (80-97); Mean Platelet Volume 7.3 fL (7.5-11.2); Platelet Count 242 10^3/uL (150-450); Red Blood Count 4.29 10^6/uL (4.06-5.63); Red Cell Distribution Width 12.5 % (12-17); White Blood Count 9.5 10^3/uL (3.6-10.2)
[2024-11-15 06:57] LABS: Albumin 3.9 g/dL (3.5-5.7); Albumin/Globulin Ratio 1.7 (1-3); C Reactive Protein 20.23 mg/L (<8.01); Calcium 8.5 mg/dL (8.6-10.3); Creatinine, Serum 0.99 mg/dL (0.67-1.17); Globulin 2.3 g/dL (2-4); Potassium 4.2 mmol/L (3.5-5.0); Total Bilirubin 1.1 mg/dL (0.2-1.0); Total Protein 6.2 g/dL (6.4-8.9); eGFR CKD-EPI 79.9 (>60)
[2024-11-15 07:09] LABS: ABS Lymphocytes 0.8 10^3/uL (1.0-4.8); ABS Monocytes 2.7 10^3/uL (0.0-1.1); Eosinophil % 0.1 %; Lymphocyte % 8.8 %
[2024-11-15] MEDS ORDERED: Polyethylene Glycol 3350 17 GM PACKET PO PRN (12:33)
[2024-11-15] MEDS ORDERED: Al Hydrox/Mg Hydrox/Simet LIQ 30 ML UDC PO PRN (12:33)
[2024-11-15] MEDS: HYDROmorphone 1 MG/1 ML SYRINGE IV SLOW PU PRN (13:07)
[2024-11-15] MEDS: metroNIDAZOLE IV 500 MG/100ML 500 MG/100 ML BAG IVPB ONE (13:07)
[2024-11-15] MEDS ORDERED: fentaNYL 250 mcg/5 ml 50 MCG/ML 5 ml VIAL (250 MCG) ONE ×2 (13:49→16:32)
[2024-11-15] MEDS ORDERED: Lidocaine 2% PF 5 ML VIAL ONE (13:49)
[2024-11-15] MEDS ORDERED: Propofol 10 MG/ML 20 ML BTL ONE ×2 (13:49→16:46)
[2024-11-15] MEDS ORDERED: Midazolam 2 mg/2 ml VIAL 1 mg/ml 2 ml VIAL (2 mg) ONE (14:02)
[2024-11-15] MEDS: Ciprofloxacin 400mg IVPREMIX 400 MG/200 ML BAG IVPB ONE (14:34)
[2024-11-15] MEDS ORDERED: Bupivacaine 0.25% EPI 200,000 30 ML SDV ONE (15:09)
[2024-11-15] MEDS ORDERED: Rocuronium 50 mg VIAL 10 mg/ml 5 ml VIAL (50 mg) ONE (15:37)
[2024-11-15] MEDS ORDERED: Succinylcholine 200 mg VIAL 20 mg/ml 10 ml VIAL (200 mg) ONE (16:23)
[2024-11-15] MEDS ORDERED: Metoclopramide 5 MG/ML VIAL (10 mg) ONE (16:24)
[2024-11-15] MEDS ORDERED: Ondansetron 4 mg VIAL 2 MG/ML 2 ml VIAL ONE ×2 (16:24→16:26)
[2024-11-15] MEDS ORDERED: Glycopyrrolate IV 0.2 MG/ML 1 ML VIAL ONE (16:47)
[2024-11-15] MEDS ORDERED: Dexamethasone IV 4 MG/ML VIAL 1 ml VIAL ONE (17:01)
[2024-11-15] MEDS ORDERED: Acetaminophen IV 1 GM/100ML 1,000 MG/100 ML BAG IV ONE (17:02)
[2024-11-15] MEDS ORDERED: HYDROmorphone 0.5 MG/0.5 ML SYRINGE IV SLOW PU PRN (20:27)
[2024-11-15] MEDS: Heparin 5000 UNITS/ML 1 mL VIAL SUBCUT SCH (20:51)
[2024-11-15] MEDS: metroNIDAZOLE IV 500 MG/100ML 500 MG/100 ML BAG IVPB SCH (23:05)
[2024-11-16] MEDS: metroNIDAZOLE IV 500 MG/100ML 500 MG/100 ML BAG IVPB SCH (00:39)
[2024-11-16] MEDS: HYDROmorphone 0.5 MG/0.5 ML SYRINGE IV SLOW PU PRN (05:40)
[2024-11-16 06:11] LABS: Mean Corpuscular Hemoglobin 34.6 pg (27-33); Mean Corpuscular Hgb Conc 34.2 g/dL (31-36); Mean Corpuscular Volume 101.2 fL (80-97); Mean Platelet Volume 7.6 fL (7.5-11.2); Platelet Count 228 10^3/uL (150-450); Red Blood Count 4.35 10^6/uL (4.06-5.63); Red Cell Distribution Width 13.4 % (12-17); White Blood Count 14.1 10^3/uL (3.6-10.2)
[2024-11-16 06:58] LABS: Albumin 3.8 g/dL (3.5-5.7); Albumin/Globulin Ratio 1.5 (1-3); Calcium 8.8 mg/dL (8.6-10.3); Creatinine, Serum 1.24 mg/dL (0.67-1.17); Globulin 2.5 g/dL (2-4); Potassium 4.3 mmol/L (3.5-5.0); Total Bilirubin 1.8 mg/dL (0.2-1.0); Total Protein 6.3 g/dL (6.4-8.9)
[2024-11-16 07:46] LABS: ABS Lymphocytes 0.9 10^3/uL (1.0-4.8); ABS Monocytes 4.1 10^3/uL (0.0-1.1); ABS Neutrophils 9.1 10^3/uL (1.5-7.6); Lymphocyte % 6.4 %
[2024-11-16] MEDS: HYDROmorphone 1 MG/1 ML SYRINGE IV SLOW PU PRN (08:42)
[2024-11-16] MEDS: NS 0.9% 1000 ml BAG 1,000 ML IV ONE (10:29)
[2024-11-16] MEDS ORDERED: cefTRIAXone 1 gm/50 mL D5W 1 GM/50 ML BAG IV SCH (12:45)
[2024-11-16] MEDS: cefTRIAXone 1 gm/50 mL D5W 1 GM/50 ML BAG IV SCH (13:12)
[2024-11-16 16:47] LABS: Albumin 3.6 g/dL (3.5-5.7); Albumin/Globulin Ratio 1.5 (1-3); Calcium 8.1 mg/dL (8.6-10.3); Creatinine, Serum 1.3 mg/dL (0.67-1.17); Globulin 2.4 g/dL (2-4); Potassium 4.4 mmol/L (3.5-5.0); Total Bilirubin 0.9 mg/dL (0.2-1.0); eGFR CKD-EPI 57.6 (>60)
[2024-11-16] MEDS: Iohexol 350 (CONTRAST) 500 ML MDV IV ONE (18:21)
[2024-11-16 19:21] LABS: Hematocrit 40.2 % (38-53); Hemoglobin 13.9 g/dL (13.2-16.3); Mean Corpuscular Hemoglobin 34.8 pg (27-33); Mean Corpuscular Hgb Conc 34.5 g/dL (31-36); Mean Corpuscular Volume 100.9 fL (80-97); Mean Platelet Volume 7.5 fL (7.5-11.2); Platelet Count 204 10^3/uL (150-450); Red Blood Count 3.99 10^6/uL (4.06-5.63); Red Cell Distribution Width 13.3 % (12-17); White Blood Count 10.9 10^3/uL (3.6-10.2)
[2024-11-16 19:24] LABS: ABS Lymphocytes 0.5 10^3/uL (1.0-4.8); ABS Monocytes 2.9 10^3/uL (0.0-1.1); ABS Neutrophils 7.5 10^3/uL (1.5-7.6); Lymphocyte % 4.7 %
[2024-11-16] MEDS ORDERED: Sulfur Hexaflouride MICROSPHR 25 MG VIAL IV PRN (19:26)
[2024-11-16 19:48] LABS: High Sensitivity Troponin 1 Hr 1055 pg/mL (<20)
[2024-11-16] MEDS: Heparin DRIP 25,000 UNITS BAG 25,000 UNITS/250 ML BAG IV SCH (20:24)
[2024-11-16] MEDS: Heparin 5000 UNITS/ML 1 mL VIAL IV SCH (20:25)
[2024-11-16] MEDS: Lactated Ringers 1000 ml BAG 1,000 ML IV SCH (23:31)
[2024-11-17 02:40] LABS: Hematocrit 40.7 % (38-53); Hemoglobin 13.6 g/dL (13.2-16.3); Mean Corpuscular Hemoglobin 34.2 pg (27-33); Mean Corpuscular Hgb Conc 33.4 g/dL (31-36); Mean Corpuscular Volume 102.4 fL (80-97); Mean Platelet Volume 7.8 fL (7.5-11.2); Platelet Count 205 10^3/uL (150-450); Red Blood Count 3.97 10^6/uL (4.06-5.63); Red Cell Distribution Width 13.4 % (12-17); White Blood Count 13.2 10^3/uL (3.6-10.2)
[2024-11-17 02:57] LABS: ABS Lymphocytes 1.4 10^3/uL (1.0-4.8); ABS Monocytes 4.2 10^3/uL (0.0-1.1); ABS Neutrophils 7.7 10^3/uL (1.5-7.6); Lymphocyte % 10.3 %
[2024-11-17 04:03] LABS: Albumin 3.5 g/dL (3.5-5.7); Albumin/Globulin Ratio 1.5 (1-3); Calcium 8.2 mg/dL (8.6-10.3); Creatinine, Serum 1.44 mg/dL (0.67-1.17); Globulin 2.4 g/dL (2-4); Potassium 4.1 mmol/L (3.5-5.0); Total Protein 5.9 g/dL (6.4-8.9)
[2024-11-17 15:10] LABS: Hematocrit 36.7 % (38-53); Hemoglobin 12.6 g/dL (13.2-16.3); Mean Corpuscular Hemoglobin 34.8 pg (27-33); Mean Corpuscular Hgb Conc 34.2 g/dL (31-36); Mean Corpuscular Volume 101.6 fL (80-97); Mean Platelet Volume 7.5 fL (7.5-11.2); Platelet Count 170 10^3/uL (150-450); Red Blood Count 3.62 10^6/uL (4.06-5.63); Red Cell Distribution Width 12.9 % (12-17); White Blood Count 10.1 10^3/uL (3.6-10.2)
[2024-11-17 15:25] LABS: ABS Lymphocytes 0.9 10^3/uL (1.0-4.8); ABS Monocytes 3.2 10^3/uL (0.0-1.1); Eosinophil % 0.1 %; Lymphocyte % 8.4 %
[2024-11-18 04:52] LABS: Hematocrit 34.7 % (38-53); Hemoglobin 11.7 g/dL (13.2-16.3); Mean Corpuscular Hemoglobin 33.9 pg (27-33); Mean Corpuscular Hgb Conc 33.7 g/dL (31-36); Mean Corpuscular Volume 100.8 fL (80-97); Platelet Count 177 10^3/uL (150-450); Red Blood Count 3.44 10^6/uL (4.06-5.63); Red Cell Distribution Width 13.1 % (12-17); White Blood Count 8.5 10^3/uL (3.6-10.2)
[2024-11-18 06:52] LABS: Albumin/Globulin Ratio 1.3 (1-3); Calcium 7.6 mg/dL (8.6-10.3); Creatinine, Serum 1.1 mg/dL (0.67-1.17); Globulin 2.3 g/dL (2-4); Potassium 4.1 mmol/L (3.5-5.0); Total Bilirubin 0.7 mg/dL (0.2-1.0); Total Protein 5.3 g/dL (6.4-8.9); eGFR CKD-EPI 70.4 (>60)
[2024-11-18 13:49] VITALS: BP 146/79
== END 2024-11-18 16:15 | disposition short-term general hospital (02) | DRG 417 ==
LOC: EDHOLD 23:03 → ED 23:03 → AA 11-15 14:35 → MEDTELE 11-15 14:47 → SUATTDRO 11-17 10:18
PROVIDERS: ADMIT Internal Medicine; ATTEND Student in an Organized Health Care Education/Training Program